=== PATIENT | female | born 1955 | race Caucasian/White ===

== ENCOUNTER 2024-03-06 09:58 | Inpatient (IN) | payer MEDICARE, OTHER ==
[~2024-03-06] VITALS: Ht 157.5 cm; Wt 66.2 kg
--- NOTE | 2024-03-06 10:17 | ED.PDOC ---
History of Present Illness HPI Comments 68-year-old female with PMHx Skin Cancer brought in by EMS presents with a chief complaint of right arm weakness x 1 week. According to EMS, patient called 911 stating that she was having a stroke. Patient was ambulatory on scene, no neurological deficits, no facial drooping, or bilateral extremity weakness. EMS reports that patient endorsed being under a lot more stress recently due to her being evicted soon from her home. 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 No other symptoms or modifying factors present at this time. 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 Family History Family History: Reviewed,noncontributory to illness Social History Smoker: Non-Smoker Alcohol: Denies ETOH Use Drugs: Denies Drug Use Lives In: Home Constitutional: denies: chills, diaphoresis, fatigue, fever, malaise, sweats, weakness, others EENTM: denies: blurred vision, double vision, ear bleeding, ear discharge, ear drainage, ear pain, ear ringing, eye pain, eye redness, hearing loss, mouth pain, mouth swelling, nasal discharge, nose bleeding, nose congestion, nose pain, photophobia, tearing, throat pain, throat swelling, voice changes, others Respiratory: denies: cough, hemoptysis, orthopnea, SOB at rest, shortness of breath, SOB with excertion, stridor, wheezing, others Cardiovascular: denies: chest pain, dizzy spells, diaphoresis, Dyspnea on exertion, edema, irregular heart beat, left arm pain, lightheadedness, palpitations, PND, syncope, others Gastrointestinal: denies: abdomen distended, abdominal pain, blood streaked bowels, constipated, diarrhea, dysphagia, difficulty swallowing, hematemesis, melena, nausea, poor appetite, poor fluid intake, rectal bleeding, rectal pain, vomiting, others Genitourinary: denies: abnormal vagina bleeding, burning, dyspareunia, dysuria, flank pain, frequency, hematuria, incontinence, pain, , vagina discharge, urgency, others Neurological: reports: right sided weakness (RIGHT ARM WEAKNESS); denies: dizziness, fainting, headache, left sided numbness, left sided weakness, numbness, paresthesia, pre-existing deficit, right sided numbness, seizure, speech problems, tingling, tremors, weakness, others Musculoskeletal: denies: back pain, gout, joint pain, joint swelling, muscle pain, muscle stiffness, neck pain, others Integumetry: denies: bruises, change in color, change in hair/nails, dryness, laceration, lesions, lumps, rash, wounds, others Allergic/Immunocompromised: denies: Difficulty Healing, Frequent Infections, Hives, Itching, others Hematologic/Lymphatic: denies: anemia, blood clots, easy bleeding, easy bruising, swollen glands, others Endocrine: denies: excessive hunger, excessive sweating, excessive thirst, excessive urination, flushing, intolerance to cold, intolerance to heat, unexplained weight gain, unexplained weight loss, others Psychiatric: denies: anxiety, bipolar disorder, depression, hopeless, panic disorder, schizophrenia, sleepless, suicidal, others All Other Systems: Reviewed and Negative Physical Exam General Appearance: Moderate Distress HEENT: Normal ENT Inspection, Pharynx Normal, TMs Normal Neck: Full Range of Motion, Non-Tender, Normal, Normal Inspection Respiratory: Chest Non-Tender, Lungs Clear, No Accessory Muscle Use, No Respiratory Distress, Normal Breath Sounds Cardiovascular: No Edema, No JVD, No Murmur, No Gallop, Normal Peripheral Pulses, Regular Rate/Rhythm Breast Exam: Deferred Gastrointestinal: No Organomegaly, Non Tender, No Pulsatile Mass, Normal Bowel Sounds, Soft Genitalia: Deferred Pelvic: Deferred Rectal: Deferred Extremities: No calf tenderness, Normal capillary refill, Normal inspection, Normal range of motion, Non-tender, No pedal edema Musculoskeletal : Apperance: Normal Neurologic: Alert, crystal gazer II-XII nml as Tested, Motor Weakness (Left-sided weakness), Normal Affect, Normal Mood, No Sensory Deficits Cerebellar Function: Normal Reflexes: Normal Skin: Dry, Normal Color, Warm Lymphatic: No Adenopathy Was a procedure done? Was a procedure done?: No Differential Dx Considerations may include: Generalized weakness, CVA, ACS, VA, electrolyte imbalance X-Ray, Labs, Meds, VS Vital Signs Date Time Temp Pulse Resp B/P (MAP) Pulse Ox O2 Delivery O2 Flow Rate FiO2 03/06/24 10:47 75 03/06/24 10:20 69 13 94 Room Air* 0 21 03/06/24 10:20 98.0 69 13 154/71 (98) 94 98.0 03/06/24 10:08 98.0 69 16 163/85 (111) 94 Lab Test 03/06/24 11:20 03/06/24 10:52 Range/Units Urine Color Colorless Yellow Urine Clarity Turbid H Clear Urine pH 6.5 5.0-9.0 Urine Specific [place] 1.004 1.001-1.035 Urine Protein Negative Negative Urine Ketones Negative Negative Urine Blood 2+ H Negative /uL Urine Nitrite 2+ H Negative Urine Bilirubin Negative Negative Urine Urobilinogen Normal Negative mg/dL Urine Leukocyte Esterase 1+ Negative /uL Urine RBC 2 0 - 4 /hpf Urine WBC 4 0 - 5 /hpf Urine Squamous Epithelial Cells Few <5 /hpf Urine Bacteria None seen None Seen /hpf Urine Glucose Normal Normal mg/dL White Blood Count 11.2 H 4.4-10.8 10^3/uL Red Blood Count 5.15 4.0-5.20 10^6/uL Hemoglobin 13.9 12.2-16.2 g/dL Hematocrit 42.2 36.0-46.0 % Mean Corpuscular Volume 82.1 80.0-100.0 fL Mean Corpuscular Hemoglobin 27.0 L 28.0-32.0 pg Mean Corpuscular Hemoglobin Concent 32.8 32.0-36.0 g/dL Red Cell Distribution Width 15.8 H 11.8-14.3 % Platelet Count 312 140-450 10^3/uL Mean Platelet Volume 8.2 6.9-10.8 fL Neutrophils (%) (Auto) 76.2 37.0-80.0 % Lymphocytes (%) (Auto) 14.8 10.0-50.0 % Monocytes (%) (Auto) 8.6 0.0-12.0 % Eosinophils (%) (Auto) 0.1 0.0-7.0 % Basophils (%) (Auto) 0.3 0.0-2.0 % Neutrophils # (Auto) 8.5 1.6-8.6 10 ^3/uL Lymphocytes # (Auto) 1.7 0.4-5.4 10 ^3/uL Monocytes # (Auto) 1.0 0-1.3 10 ^3/uL Eosinophils # (Auto) 0 0-0.8 10 ^3/uL Basophils # (Auto) 0 0-0.2 10 ^3/uL Nucleated Red Blood Cells 0.1 % Sodium Level 142 136-145 mmol/L Potassium Level 3.4 L 3.5-5.1 mmol/L Chloride Level 115 H 98-107 mmol/L Carbon Dioxide Level 22 20-31 mmol/L Anion Gap 5 5-15 Blood Urea Nitrogen 16 9-23 mg/dL Creatinine 0.88 0.550-1.02 mg/dL Glomerular Filtration Rate Calc 72 >90 mL/min BUN/Creatinine Ratio 18.2 10.0-20.0 Serum Glucose 101 74-106 mg/dL Calcium Level 10.0 8.7-10.4 mg/dL Troponin I High Sensitivity 9 </=34 ng/L Current Medications Medications (Trade) Dose Ordered Sig/Dustin Route Start Time Stop Time Status Last Admin Sodium Chloride 500 ml @ 500 mls/hr Q1H ONCE IV 03/06/24 10:30 03/06/24 11:29 DC 03/06/24 11:[address] SCAN IMPRESSION: 1. Small nonspecific hypodense focus in the left caudate head may represent an age-indeterminate infarct. Clinical correlation and further evaluation with MRI brain with diffusion-weighted imaging is recommended. 2. Chronic cortical infarct in the superior left frontal lobe. The CBC shows an elevated white blood cell count of 11.2 The chemistry panel shows hypokalemia at 3.4 The rest of the chemistry panel is within normal limits The urine test seems like there is a UTI The patient has an IV Hep-Lock established and was given 500 cc bolus. The patient was being admitted at this time. A carotid Doppler done bilaterally and the left carotid artery shows: IMPRESSION: 1. 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 2. No hemodynamically significant stenosis noted in the right carotid system. At this time the hospitalist has assumed care of the patient. The patient will be admitted A neurology consult will be obtained Images Reviewed?: Images reviewed and evaluated by me Time of 1ST Reevaluation: 10:41 Reevaluation 1ST: Unchanged Patient Education/Counseling: Diagnosis, Treatment, Prognosis Family Education/Counseling: No Family Present Departure 1 Departure Time of Disposition: 14:21 Impression: Primary Impression: CVA (cerebral vascular accident) Qualified Codes: I63.232 - Cerebral infarction due to unspecified occlusion or stenosis of left carotid arteries Disposition: 09 ADMITTED INPATIENT Admit to: [facility] Condition: Fair Critical Care Note Critical Care Time?: Yes (35 min-critical care time only) Stability Stability form required: Yes Unstable for transfer: Telemetry monitoring (Telemetry monitoring required), ED Physician Assesment (Clinical assesment) Heart Score Heart Score: Heart Score Response (Comments) Value History N/A 0 EKG N/A 0 Age N/A 0 Risk Factors N/A 0 Troponin N/A 0 Total 0 I personally scribed for CHRISSY WINKLER MD ([email or web address]) on 03/06/24 at 10:17. Electronically submitted by Abdulkadir Wu ([email or web address]). I personally scribed for CHRISSY WINKLER MD ([email or web address]) on 03/06/24 at 11:07. Electronically submitted by Abdulkadir Wu ([email or web address]). CHRISSY WINKLER MD Mar 06, 2024 10:17
[2024-03-06 10:20] VITALS: PULSE 69; RESP 13; O2SAT 94
--- NOTE | 2024-03-06 10:58 | DVH ---
EXAM: CT HEAD WITHOUT CONTRAST HISTORY: weakness COMPARISON: None TECHNIQUE: Axial images of the head were obtained and reformatted in coronal and sagittal planes. All CT scans at this medical facility are performed using dose modulation techniques as appropriate t o a performed exam including the following: Automated exposure control was utilized; adjustment of th e MA and/or KV according to patient size; and use of iterative reconstruction technique. CT Dose: CTDI volume is 56.26 mGy. Dose-length product is 996.21 mGy*cm FINDINGS: There is a small hypodense focus in the left caudate head region ( axial image 31 ) which may represe nt an age indeterminate infarct. There is a chronic cortical infarct in the superior left frontal lo be. There is no evidence of acute intracranial hemorrhage, mass, mass effect midline shift. There is no h ydrocephalus or extra-axial fluid collection. The visualized paranasal sinuses and mastoid air cells are clear. The calvarium is intact. IMPRESSION: 1. Small nonspecific hypodense focus in the left caudate head may represent an age-indeterminate infa rct. Clinical correlation and further evaluation with MRI brain with diffusion-weighted imaging is re commended. 2. Chronic cortical infarct in the superior left frontal lobe. HS:Y
[2024-03-06 11:09] LABS: Basophils # (auto) 0 10 ^3/uL (0-0.2); Basophils % (auto) 0.3 % (0.0-2.0); Eosinophils # (auto) 0 10 ^3/uL (0-0.8); Eosinophils % (auto) 0.1 % (0.0-7.0); Hematocrit 42.2 % (36.0-46.0); Hemoglobin 13.9 g/dL (12.2-16.2); Lymphocytes # (auto) 1.7 10 ^3/uL (0.4-5.4); Lymphocytes % (auto) 14.8 % (10.0-50.0); Mean Corpuscular Hgb Conc. 32.8 g/dL (32.0-36.0); Mean Corpuscular Volume 82.1 fL (80.0-100.0); Monocytes % (auto) 8.6 % (0.0-12.0); Neutrophils # (auto) 8.5 10 ^3/uL (1.6-8.6); Neutrophils % (auto) 76.2 % (37.0-80.0); Nucleated Red Blood Cells % 0.1 %; Platelet Count (auto) 312 10^3/uL (140-450); Red Blood Cells 5.15 10^6/uL (4.0-5.20); Red Cell Distribution Width 15.8 % (11.8-14.3); White Blood Cell 11.2 10^3/uL (4.4-10.8)
[2024-03-06 11:14] LABS: Sodium 142 mmol/L (136-145)
[2024-03-06 11:15] LABS: Anion Gap 5 (5-15); Carbon Dioxide 22 mmol/L (20-31)
[2024-03-06 11:20] LABS: BUN/Creatinine Ratio 18.2 (10.0-20.0); Blood Urea Nitrogen 16 mg/dL (9-23); Glucose 101 mg/dL (74-106)
[2024-03-06 11:21] LABS: Chloride 115 mmol/L (98-107); Potassium 3.4 mmol/L (3.5-5.1)
[2024-03-06] MEDS: SODIUM CHLORIDE 0.9% 500 ML IV ONE (11:27)
[2024-03-06 11:28] LABS: Urine Bacteria None Seen /hpf (None Seen)
[2024-03-06] MEDS: SODIUM CHLORIDE 0.9% 1,000 ML IV SCH (11:30)
[2024-03-06] MEDS ORDERED: ZOLPIDEM TARTRATE 5 MG TAB PO PRN (11:30)
[2024-03-06] MEDS ORDERED: ONDANSETRON HCL 4 MG/2 ML VIAL IV PRN (11:30)
--- NOTE | 2024-03-06 11:46 | DVHHP2 ---
History of Present Illness Reason for Visit: weakness History of Present Illness 68-year-old patient with a past medical history of cancer of the skin comes in with complaints of weakness x1 week especially in the right arm stating that the patient has no ability to properly ambulate patient does have chronic history of multiple strokes in the past CT scan was done in the ED showing that the patient does have multiple chronic episode of strokes in the past as possible at this might be a new episode as of now patient is not a candidate for acute thrombectomy or out of place given the age the complaint patient was suggested for acute admission and evaluation and monitoring recurrent symptoms CONTROLS ENGINEER: TIA Review of Systems Constitutional: Yes: Weakness; No: Fever, Chills, Sweats, Malaise, Other Eyes: No: Pain, Vision change, Conjunctivae inflammation, Eyelid inflammation, Other, Redness ENT: No: Ear pain, Ear discharge, Nose pain, Nose discharge, Nose congestion, Mouth pain, Mouth swelling, Throat pain, Throat swelling, Other Respiratory: No: Cough, Dry, Shortness of breath, SOB with excertion, Wheezing, Hemoptysis, Pleuritic Pain, Sputum, Wheezing, Other Cardiovascular: No: Chest Pain, Palpitations, Orthopnea, Paroxysmal Noc. Dyspnea, Edema, Lt Headedness, Other Gastrointestinal: No: Nausea, Vomiting, Abdominal Pain, Diarrhea, Constipation, Melena, Hematochezia, Other Genitourinary: No Dysuria, No Frequency, No Incontinence, No Hematuria, No Retention, No Other Musculoskeletal: No: other, neck pain, shoulder pain, arm pain, back pain, hand pain, leg pain, foot pain Skin: No: Rash, Lesions, Jaundice, Bruising, Other Neurological: No: Weakness, Numbness, Incoordination, Change in speech, Confusion, Seizures, Other Allergies: Coded Allergies: NO KNOWN ALLERGIES (Unverified , 03/06/24) Medications Current Medications Medications Dose Ordered Sig/Dustin Route Start Time Stop Time Status Last Admin Dose Admin Sodium Chloride 1,000 ml @ 75 mls/hr [id number] IV 03/06/24 11:30 UNV Aspirin 81 mg DAILY PO 03/07/24 10:00 UNV Aspirin 325 mg ONCE PO 03/06/24 11:30 UNV Clopidogrel Bisulfate 75 mg DAILY PO 03/07/24 10:00 UNV Atorvastatin Calcium 80 mg HS PO 03/06/24 22:00 UNV Carvedilol 6.25 mg Q12HR PO 03/06/24 22:00 UNV Acetaminophen 650 mg Q6HP PRN PO 03/06/24 11:30 UNV Zolpidem Tartrate 5 mg QHSP PRN PO 03/06/24 11:30 UNV Lorazepam 0.5 mg Q6HP PRN PO 03/06/24 11:30 UNV Docusate Sodium 100 mg DAILY PO 03/07/24 10:00 UNV Ondansetron HCl 4 mg Q4HP PRN IV 03/06/24 11:30 UNV Lisinopril 10 mg DAILY PO 03/07/24 10:00 UNV Exam Vital Signs Vital Signs Date Time Temp Pulse Resp B/P (MAP) Pulse Ox O2 Delivery O2 Flow Rate FiO2 03/06/24 10:47 75 03/06/24 10:20 13 94 Room Air* 0 21 03/06/24 10:20 98.0 154/71 (98) 98.0 General Appearance: Alert, Oriented X3, Cooperative, mild distress HEENT: PERRLA Cardiovascular: Regular rate, Normal S1, Normal S2 Abdominal: Normal bowel sounds, No tenderness Extremities: No clubbing, No cyanosis Skin: No breakdown Neuro: Normal gait, Normal speech, Strength at 5/5 X4 ext (Right-sided weakness) Psych/Mental Status: Mood NL Labs/Xrays Labs Test 03/06/24 11:20 03/06/24 10:52 Range/Units White Blood Count 11.2 H 4.4-10.8 10^3/uL Red Blood Count 5.15 4.0-5.20 10^6/uL Hemoglobin 13.9 12.2-16.2 g/dL Hematocrit 42.2 36.0-46.0 % Mean Corpuscular Volume 82.1 80.0-100.0 fL Mean Corpuscular Hemoglobin 27.0 L 28.0-32.0 pg Mean Corpuscular Hemoglobin Concent 32.8 32.0-36.0 g/dL Red Cell Distribution Width 15.8 H 11.8-14.3 % Platelet Count 312 140-450 10^3/uL Mean Platelet Volume 8.2 6.9-10.8 fL Neutrophils (%) (Auto) 76.2 37.0-80.0 % Lymphocytes (%) (Auto) 14.8 10.0-50.0 % Monocytes (%) (Auto) 8.6 0.0-12.0 % Eosinophils (%) (Auto) 0.1 0.0-7.0 % Basophils (%) (Auto) 0.3 0.0-2.0 % Neutrophils # (Auto) 8.5 1.6-8.6 10 ^3/uL Lymphocytes # (Auto) 1.7 0.4-5.4 10 ^3/uL Monocytes # (Auto) 1.0 0-1.3 10 ^3/uL Eosinophils # (Auto) 0 0-0.8 10 ^3/uL Basophils # (Auto) 0 0-0.2 10 ^3/uL Nucleated Red Blood Cells 0.1 % Sodium Level 142 136-145 mmol/L Potassium Level 3.4 L 3.5-5.1 mmol/L Chloride Level 115 H 98-107 mmol/L Carbon Dioxide Level 22 20-31 mmol/L Anion Gap 5 5-15 Blood Urea Nitrogen 16 9-23 mg/dL Creatinine 0.88 0.550-1.02 mg/dL Glomerular Filtration Rate Calc 72 >90 mL/min BUN/Creatinine Ratio 18.2 10.0-20.0 Serum Glucose 101 74-106 mg/dL Calcium Level 10.0 8.7-10.4 mg/dL Assessment/Plan Assessment/Plan Admit to [facility] Suspected CVA Patient is past window for acute evaluation CT scan shows chronic cortical infarcts Superior left frontal lobe History of small hypodensity which is age indeterminate possibly a new onset stroke ASA Plavix Beta Blockers pressure monitoring Carotid doppler evaluation MRI can be done in patient if deemed necessary Plan discussed with: Patient My Orders Orders - ERIC WAGGONER MD Procedure Category Date Status Time Admit ADMIT 03/06/24 Transmitted 11:25 Code Status CODE 03/06/24 Transmitted 11:25 Cardiac DIET 03/06/24 Transmitted Diet-2gna,Lofat,Lochol Lunch Sodium Chloride 0.9% PHA 03/06/24 Logged 11:30 Aspirin Tablet PHA 03/07/24 Logged 10:00 Aspirin Tablet PHA 03/06/24 Logged 11:30 Clopidogrel Bisulfate PHA 03/07/24 Logged (Plavix) 10:00 Atorvastatin (Lipitor) PHA 03/06/24 Logged 22:00 Carvedilol Tablet PHA 03/06/24 Logged (Coreg Tablet) 22:00 Acetaminophen Tablet PHA 03/06/24 Logged (Tylenol Tablet) 11:30 Zolpidem Tartrate PHA 03/06/24 Logged (Ambien) 11:30 Lorazepam Tablet PHA 03/06/24 Logged (Ativan Tablet) 11:30 Docusate Sodium PHA 03/07/24 Logged Capsule (Colace 10:00 Complete Blood Count LAB 03/07/24 Verified 04:00 Basic Metabolic Panel LAB 03/07/24 Verified 04:00 Urine Microscopic LAB 03/06/24 In Process 11:25 Ondansetron Hcl PHA 03/06/24 Logged (Zofran) 11:30 Electrocardigram EKG 03/06/24 Logged 11:25 Troponin-I Hs LAB 03/06/24 In Process 11:25 Lisinopril Tablet PHA 03/07/24 Logged (Zestril Tablet) 10:00 Cardiac DIMAS 03/06/24 In Process Rehabilitation - Outpa Notify Md Of Changes DIMAS 03/06/24 In Process From Base 11:25 Oxygen By Nasal RT 03/06/24 Transmitted Cannula 11:25 Carotid Duplx W Color US 03/06/24 Logged DOP 11:25 Problem List: (1) TIA (transient ischemic attack) (2) CVA (cerebral vascular accident) (3) General weakness Date of Service: Mar 06, 2024 Billing Provider: ERIC WAGGONER MD Common Visit Codes: 47221-[id number] INP/OBS CARE (HIGH) ERIC WAGGONER MD Mar 06, 2024 11:46
[2024-03-06 11:52] LABS: Urine Blood 2+ /uL (Negative); Urine Clarity Turbid (Clear); Urine Color Colorless (Yellow); Urine Protein, UAD Negative (Negative); Urine Specific Gravity 1.004 (1.001-1.035); Urine Urobilinogen Normal (Negative); Urine WBC 4 /hpf (0 - 5); Urine pH 6.5 (5.0-9.0)
[2024-03-06] MEDS: ASPirin 325 MG TAB PO ONE (12:12)
--- NOTE | 2024-03-06 13:00 | DVH ---
Carotid Duplex Date: 03/06/2024 12:09 PM Clinical History: cva stenosis suspected Comparison: None Technique: Duplex Doppler evaluation of the extracranial carotid and vertebral arteries including color Doppler and spectral/pulsed waveform analysis was performed. Findings: RIGHT SIDE: Mixed atherosclerotic plaque of the right carotid bulb and proximal right ICA causing less than 50% s tenosis by grayscale measurement. The peak systolic velocities are 71 cm/s in the distal CCA and 115 cm/s in the proximal ICA.The ICA/C CA ratio is less than 2. The external carotid artery is patent with peak systolic velocity of 106 cm/s proximally. There is appropriate antegrade flow in the right vertebral artery. LEFT SIDE: The peak systolic velocities are 62 cm/s in the distal CCA. Large mixed atherosclerotic plaque causin g complete occlusion at the proximal left ICA. No ICA to CCA ratio, as ICA velocity is 0. The external carotid artery is patent with peak systolic velocity of 143 cm/s proximally. There is appropriate antegrade flow in the left vertebral artery. IMPRESSION: 1. Complete occlusion at the level of of the left proximal ICA, and extending throughout the visualiz ed distal segment. 2. No hemodynamically significant stenosis noted in the right carotid system. 3. Reference: Radiology 2003; [id number] Critical Result: Occluded left ICA Findings discussed with ordering provider, Dr. Kim , at 03/06/2024 12:57 PM, and acknowledged rece ipt and understanding of the findings. HS:Y
--- NOTE | 2024-03-06 15:43 | DVH ---
INDICATION: CVA EVALUATION COMPARISON: None TECHNIQUE: CTA head with intravenous contrast. CTA neck with intravenous contrast. 3D image postpr ocessing was performed on a dedicated workstation and images were used for interpretation and reporti ng. Radiation Dose Information: CT Dose: CTDI volume is 22.55 mGy. Dose-length product is 736.89 mGy*cm CONTRAST: Type of contrast: Omni 350 Contrast injected: 100 ml FINDINGS: CTA head: There is normal enhancement of the visualized distal right internal carotid, anterior and middle cere bral arteries. Left petrous and cavernous carotid arteries are occluded. Left supraclinoid internal carotid artery is patent. Left A1 segment is atretic. Left middle cerebral artery is patent. There i s a normal anterior communicating artery complex. The vertebral, basilar, cerebellar and posterior cerebral arteries are within normal limits. The early parenchymal enhancement is grossly unremarkab le. The visualized intracranial venous structures are grossly unremarkable. CTA neck: Limited by motion at the level of the carotid bifurcation. The visualized thoracic aortic arch and proximal great vessels are unremarkable. 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 Left common and external caroti d arteries appear patent. There appears to be a [id number] stenosis of the proximal right internal carotid artery. Right common and external carotid arteries appear patent. The cervical segments of the right and left vertebral arteries are within normal limits. The limited visualized lung apices are clear. Left thyroid cyst or nodule. Degenerative changes in the cervical spine. IMPRESSION: 1. Limited by motion at the level of the carotid bifurcation. 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 Likely [id number] stenosis of the proximal right internal carotid artery . Consider repeat examination. Alternatively carotid doppler or MRA of the neck be performed for fur ther evaluation. 2. Occluded left petrous and cavernous carotid artery with reconstitution at the level of the left holloway praclinoid internal carotid artery. Otherwise intracranial arteries are patent. All CT scans at this medical facility are performed using dose modulation techniques as appropriate t o a performed exam including the following: Automated exposure control was utilized; adjustment of th e MA and/or KV according to patient size; and use of iterative reconstruction technique. HS:Y
[2024-03-06] MEDS: cefTRIAXone 1GM/50ML D5W 50 ML IV SCH (17:30)
[2024-03-06] MEDS: IOHEXOL 350 MG/ML 100ML IJ ONE (19:30)
[2024-03-06 20:00] VITALS: PULSE 72; RESP 14; O2SAT 95
[2024-03-07] VITALS (10 sets, daily range): BP systolic 121–166; BP diastolic 63–81; PULSE 56–76; RESP 13–20; TEMP 97.6–98.5; O2SAT 95–100
[2024-03-07] MEDS: CARVEDILOL 3.125 MG TAB PO SCH (00:10)
[2024-03-07] MEDS: ATORVASTATIN 20 MG TAB PO SCH (00:10)
[2024-03-07] MEDS: hydrALAZINE HCL 20 MG/ML VL IV ONE (02:16)
[2024-03-07 06:09] LABS: Basophils # (auto) 0.1 10 ^3/uL (0-0.2); Basophils % (auto) 0.6 % (0.0-2.0); Eosinophils # (auto) 0.1 10 ^3/uL (0-0.8); Eosinophils % (auto) 0.9 % (0.0-7.0); Hematocrit 38.6 % (36.0-46.0); Hemoglobin 12.9 g/dL (12.2-16.2); Lymphocytes # (auto) 2.1 10 ^3/uL (0.4-5.4); Lymphocytes % (auto) 23.2 % (10.0-50.0); Mean Corpuscular Hemoglobin 27.3 pg (28.0-32.0); Mean Corpuscular Hgb Conc. 33.4 g/dL (32.0-36.0); Mean Corpuscular Volume 81.7 fL (80.0-100.0); Monocytes # (auto) 0.9 10 ^3/uL (0-1.3); Monocytes % (auto) 9.6 % (0.0-12.0); Neutrophils # (auto) 5.9 10 ^3/uL (1.6-8.6); Neutrophils % (auto) 65.7 % (37.0-80.0); Platelet Count (auto) 291 10^3/uL (140-450); Red Blood Cells 4.73 10^6/uL (4.0-5.20); Red Cell Distribution Width 15.8 % (11.8-14.3)
[2024-03-07 06:21] LABS: Anion Gap 9 (5-15); Potassium 3.7 mmol/L (3.5-5.1); Sodium 144 mmol/L (136-145)
[2024-03-07 06:23] LABS: Calcium 9.8 mg/dL (8.7-10.4)
[2024-03-07 06:28] LABS: BUN/Creatinine Ratio 18.1 (10.0-20.0); Blood Urea Nitrogen 13 mg/dL (9-23); Glucose 91 mg/dL (74-106)
[2024-03-07 06:30] LABS: Carbon Dioxide 17 mmol/L (20-31); Chloride 118 mmol/L (98-107)
[2024-03-07] MEDS: DOCUSATE SOD 100 MG CAP PO SCH (09:51)
[2024-03-07] MEDS: ASPirin 81 mg TAB PO SCH (09:52)
[2024-03-07] MEDS: CLOPIDOGREL BISULFATE 75 MG TAB PO SCH (09:53)
[2024-03-07 09:54] LABS: Triglycerides 112 mg/dL (< 150)
[2024-03-07 09:55] LABS: LDL Cholesterol 79 mg/dL (< 100)
[2024-03-07 09:56] LABS: Cholesterol 153 mg/dL (< 200); HDL Cholesterol 48 mg/dL (40-59)
[2024-03-07] MEDS ORDERED: LISINOPRIL 5 MG TAB PO SCH (10:00)
--- NOTE | 2024-03-07 18:13 | DVHPNRES ---
Progress Note Date Seen: Mar 07, 2024 Resident Creating Document: TIGRE RAMOS RESIDENT Has the PT tested + for MRSA If YES, has PT been informed?: No Medical Necessity Reason Pt with a Central, PICC or Fol: No Medical Necessity Reason Necrotic open skin cancer forehead, right jaw Subjective Review of Systems This is a 68-year-old patient with a past medical history of skin cancer, multiple strokes comes to the ED with right sided weakness that has been intermittent for several months. But in the past 2 days, right sided weak became prominent to the point that she can't grab a pen to write. Thus, prompting her to come to the ED. She denies loss of smell, visual changes, changes in speech, confusion, seizures. Initial blood works showed wbc: 11.2, UA positive for mild UTI. CT head revealed Small nonspecific hypodense focus in the left caudate head may represent an age-indeterminate infarct. Clinical correlation and further evaluation with MRI brain with diffusion-weighted imaging is recommended. Chronic cortical infarct in the superior left frontal lobe. Carotid doppler showed Complete occlusion at the level of of the left proximal ICA, and extending throughout the visualized distal segment and no hemodynamically significant stenosis noted in the right carotid system. And CT head 1. Limited by motion at the level of the carotid bifurcation. 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 Likely [id number]-[id number] stenosis of the proximal right internal carotid artery. Consider repeat examination. Alternatively carotid doppler or MRA of the neck be performed for further evaluation. Occluded left petrous and cavernous carotid artery with reconstitution at the level of the left supraclinoid internal carotid artery. Otherwise intracranial arteries are patent. Past medical history: Multiple CVA with right sided weakness, Skin cancers Past surgical history: left ear surgery Family history: Non contributory Social history: Smoked 2 packs of cigarret since age 15, 106 pack years Constitutional: Yes: right Weakness; No: Fever, Chills, Sweats, Malaise, Other Eyes: No: Pain, Vision change, Conjunctivae inflammation, Eyelid inflammation, Other, Redness ENT: [place] of hearing. Nose congestion, Mouth pain, Mouth swelling, Throat pain, Throat swelling, Other Respiratory: Cough, mild SOB with excertion; Denies Wheezing, Hemoptysis, Pleuritic Pain, Sputum, Wheezing, Other Cardiovascular: No: Chest Pain, Palpitations, Orthopnea, Paroxysmal Noc. Dyspnea, Edema, Lt Headedness, Other Gastrointestinal: No: Nausea, Vomiting, Abdominal Pain, Diarrhea, Constipation, Melena, Hematochezia, Other Genitourinary: No Dysuria, No Frequency, No Incontinence, No Hematuria, No Retention, No Other Musculoskeletal: right sided weakness Skin: open wound on the forehead, fungating tumor on the chin Neurological: Weakness, Numbness, Incoordination, Objective vital signs Vital Sign Date Time Temp Pulse Resp B/P (MAP) Pulse Ox O2 Delivery O2 Flow Rate FiO2 03/07/24 17:15 97.6 68 20 141/70 (93) 97 97.6 03/07/24 08:00 Room Air* 0 21 Total Intake and Output 03/06/24 03/06/24 03/07/24 15:00 23:00 07:00 Intake Total 500 ml 50 ml 0 ml Balance 500 ml 50 ml 0 ml medications Current Medications Medications Dose Ordered Sig/Dustin Route Start Time Stop Time Status Last Admin Dose Admin Aspirin 81 mg DAILY PO 03/07/24 10:00 03/07/24 09:52 81 MG Clopidogrel Bisulfate 75 mg DAILY PO 03/07/24 10:00 03/07/24 09:53 75 MG Atorvastatin Calcium 80 mg HS PO 03/06/24 22:00 03/07/24 00:10 80 MG Carvedilol 6.25 mg Q12HR PO 03/06/24 22:00 03/07/24 10:49 6.25 MG Acetaminophen 650 mg Q6HP PRN PO 03/06/24 11:30 Zolpidem Tartrate 5 mg QHSP PRN PO 03/06/24 11:30 Lorazepam 0.5 mg Q6HP PRN PO 03/06/24 11:30 Docusate Sodium 100 mg DAILY PO 03/07/24 10:00 03/07/24 09:51 100 MG Ondansetron HCl 4 mg Q4HP PRN IV 03/06/24 11:30 Ceftriaxone Sodium 50 ml @ 100 mls/hr DAILY@09 IV 03/06/24 17:30 03/07/24 09:53 100 MLS/HR Examination General examination---> Open wound kind of smell, bloody smell;Alert, Oriented X3, Cooperative, mild distress HEENT: PEERLA, no acute nasal discharge Chest: S1-S2 audible, rate and rhythm regular, no murmur Lung: CTAB, no wheeze or rhonchi Abdomen: Nondistend, BS+, nontenderness, no organomegaly Musculoskeletal: no acute joint swelling or tenderness Lower extremity: Upper extremity power Motor 3-4/5, Lower extremity: 5/5 Neurological: cranial nerves intact, no acute dysarthria or dysphagia Psychiatry-- Normal mood and affect Skin- open wound lesion on her fore head between her eyes, lesion on the chin laboratory and microbiology Laboratory Tests 03/07/24 05:44 Test 03/07/24 05:44 Range/Units Serum Glucose 91 74-106 mg/dL Labs and/or images reviewed: Labs reviewed by me, Image(s) reviewed by me Problem List/Assessment/Plan Problem List/Assessment/Plan Right sided weakness -->Significant arterial occlusions on imaging studies --> possible TIA Ulcerated skin Cancer --> Oncology consult vs palliative care --> Wound care consult UTI --> Wb : 11.2-->9.0 --> Ceftriaxone Hypertension --> Carvediol --> Hydralazine 10mg SBP > 160 hypokalemia--> Improved K: 3.4--> 3.7 [place] of hearing Patient would benefit from palliative care Goals of care discussed for 20 minutes; code status: Full Case and plan discussed with Dr. Driscoll Plan discussed with: Patient, Other (Nurse) My Orders My Orders Orders - TIGRE RAMOS RESIDENT Procedure Category Date Status Time Brain Head Wo Contrast MRI 03/07/24 Logged 09:02 Addendum Addendum Addendum I was physically present for the [place] portions of the service provided to patient by THE RESIDENT. I have reviewed the documentation, discussed the case with resident and agree with the resident's documentation except as noted. Also the patient's clinical case was discussed with the patient's nurse. This medical document was created using an electronic medical record system with computerized dictation system. Although this document has been carefully reviewed, there might still be some phonetic and typographical errors. These areas are purely typographical due to imperfections of the software programs, and do not reflect any compromise in the patient's medical care. Late signature. Date of Service: Mar 07, 2024 Billing Provider: CONI DRISCOLL MD Common Visit Codes: [id number] INP/OBS CARE(HIGH) Secondary Visit Codes: [id number] CARE PLAN 30 MINUTES (20 minutes) TIGRE RAMOS Mar 07, 2024 18:13 CONI DRISCOLL MD Mar 09, 2024 05:20
[2024-03-08] VITALS (7 sets, daily range): BP systolic 121–173; BP diastolic 61–87; PULSE 51–64; RESP 13–19; TEMP 97.7–98.8; O2SAT 97–99
[2024-03-08] MEDS: ACETAMINOPHEN 325 MG TAB PO PRN (00:29)
[2024-03-08] MEDS: LISINOPRIL 5 MG TAB PO SCH (10:49)
[2024-03-08] MEDS: hydrALAZINE HCL 20 MG/ML VL IV PRN (13:38)
[2024-03-08 16:28] LABS: Potassium 3.6 mmol/L (3.5-5.1); Sodium 143 mmol/L (136-145)
[2024-03-08 16:29] LABS: Anion Gap 9 (5-15); Carbon Dioxide 21 mmol/L (20-31); Chloride 113 mmol/L (98-107)
[2024-03-08 16:34] LABS: BUN/Creatinine Ratio 21.1 (10.0-20.0); Blood Urea Nitrogen 19 mg/dL (9-23)
[2024-03-08 16:40] LABS: Glucose 108 mg/dL (74-106)
[2024-03-08] MEDS: NIFEdipine ER 30 MG TAB PO ONE (17:30)
--- NOTE | 2024-03-08 19:41 | DVHPNRES ---
Progress Note Date Seen: Mar 08, 2024 Resident Creating Document: TIGRE RAMOS RESIDENT Medical Necessity Reason Pt with a Central, PICC or Fol: No Subjective Review of Systems Ms Sanz, is a 68-year-old patient with a past medical history of skin cancer, multiple strokes came into the ED on with the complaint of right sided weakness that initially intermittent but became progressive and constant for 2 days prior to presentation to the ED. Patient is currently being managed for the weakness with physical therapy and the UTI with antibiotics. With regard to the open wounds on her face, wound care has been consulted for assess and management. This morning, during my interaction with the patient, she had no new complaints. She slept well and had a good breakfast. I discussed with the patient what her plan is regarding the ulcerated skin cancer. She has no plan. She has no PCP and oncologist. But she would like to see an oncologist. Will see the patient at the discharge clinic. Advised patient to look for a PCP and get a referral to see an oncologist. Also, patient is not sure if she would have home to return to upon discharge. I offered to call a family member regarding discharge disposition, but patient refused. I briefly mention palliative care, but she is not sure. I have placed a consult to social media marketing specialist to assistance with discharge disposition. Constitutional: Yes: right Weakness; No: Fever, Chills, Sweats, Malaise, Other Eyes: No: Pain, Vision change, Conjunctivae inflammation, Eyelid inflammation, Other, Redness ENT: [place] of hearing. Nose congestion, Mouth pain, Mouth swelling, Throat pain, Throat swelling, Other Respiratory: Cough, mild SOB with exertion; Denies Wheezing, Hemoptysis, Pleuritic Pain, Sputum, Wheezing, Other Cardiovascular: No: Chest Pain, Palpitations, Orthopnea, Paroxysmal Noc. Dyspnea, Edema, Lt Headedness, Other Gastrointestinal: No: Nausea, Vomiting, Abdominal Pain, Diarrhea, Constipation, Melena, Hematochezia, Other Genitourinary: No Dysuria, No Frequency, No Incontinence, No Hematuria, No Retention, No Other Musculoskeletal: right sided weakness Skin: open wound on the forehead, fungating tumor on the chin Neurological: Weakness, Numbness, Incoordination, Objective vital signs Vital Sign Date Time Temp Pulse Resp B/P (MAP) Pulse Ox O2 Delivery O2 Flow Rate FiO2 03/08/24 17:30 129/64 03/08/24 17:00 97.7 64 18 97 97.7 03/08/24 08:00 Room Air* 0 21 Total Intake and Output 03/07/24 03/07/24 03/08/24 15:00 23:00 07:00 Intake Total 650 ml 100 ml Balance 650 ml 100 ml medications Current Medications Medications Dose Ordered Sig/Dustin Route Start Time Stop Time Status Last Admin Dose Admin Aspirin 81 mg DAILY PO 03/07/24 10:00 03/08/24 10:47 81 MG Clopidogrel Bisulfate 75 mg DAILY PO 03/07/24 10:00 03/08/24 10:46 75 MG Atorvastatin Calcium 80 mg HS PO 03/06/24 22:00 03/07/24 22:33 80 MG Carvedilol 6.25 mg Q12HR PO 03/06/24 22:00 03/08/24 10:00 6.25 MG Acetaminophen 650 mg Q6HP PRN PO 03/06/24 11:30 03/08/24 17:29 650 MG Zolpidem Tartrate 5 mg QHSP PRN PO 03/06/24 11:30 Lorazepam 0.5 mg Q6HP PRN PO 03/06/24 11:30 Docusate Sodium 100 mg DAILY PO 03/07/24 10:00 03/08/24 10:47 100 MG Ondansetron HCl 4 mg Q4HP PRN IV 03/06/24 11:30 Ceftriaxone Sodium 50 ml @ 100 mls/hr DAILY@09 IV 03/06/24 17:30 03/08/24 10:49 100 MLS/HR Lisinopril 10 mg DAILY PO 03/08/24 10:00 03/08/24 10:49 10 MG Hydralazine HCl 10 mg Q6HP PRN IV 03/08/24 11:15 03/08/24 13:38 10 MG Nifedipine 30 mg DAILY PO 03/09/24 10:00 Examination General examination---> Alert, Oriented X3, Cooperative, mild distress, Ulcerated skin caner on her face HEENT: PEERLA, no acute nasal discharge Chest: S1-S2 audible, rate and rhythm regular, no murmur Lung: CTAB, no wheeze or rhonchi Abdomen: Nondistend, BS+, nontenderness, no organomegaly Musculoskeletal: no acute joint swelling or tenderness Lower extremity: Upper extremity weakness: power Motor 3-4/5, Lower extremity: 5/5 Neurological: cranial nerves intact, no acute dysarthria or dysphagia Psychiatry-- Normal mood and affect Skin- open wound lesion on her forehead between her eyes, necrotic lesion on the right chin laboratory and microbiology Laboratory Tests 03/08/24 16:10 03/07/24 05:44 Test 03/08/24 16:10 Range/Units Serum Glucose 108 H 74-106 mg/dL Labs and/or images reviewed: Labs reviewed by me, Image(s) reviewed by me Problem List/Assessment/Plan Problem List/Assessment/Plan Right sided weakness -->CT: Complete occlusion at the level of of the left proximal ICA, and extending throughout the visualized distal segment --> CT Head/Neck: 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 Likely [id number] stenosis of the proximal right internal carotid artery. Consider repeat examination. Alternatively carotid doppler or MRA of the neck be performed for further evaluation. -->CT head: 1. Small nonspecific hypodense focus in the left caudate head may represent an age-indeterminate infarct. Clinical correlation and further evaluation with MRI brain with diffusion-weighted imaging is recommended. 2. Chronic cortical infarct in the superior left frontal lobe. --> possible TIA --> Physical therapy evaluation consult: pending Ulcerated skin Cancer --> Oncology consult vs palliative care --> Wound care consult --> Would need an oncologist/ Intake Assessor evaluation UTI --> WBC: 11.2-->9.0 --> Ceftriaxone --> looking better, vitals improve. Hypertension --> Carvediol --> Hydralazine 10mg SBP > 160 hypokalemia--> Improved K: 3.4--> 3.7 [place] of hearing ---> Communicate with patient by writing each question caregiver services home consult for discharge disposition Patient would benefit from palliative care Case and plan discussed with Dr. Driscoll Addendum: At 8:30 pm, I went to check on the patient before heading home. Her sister, Cira, was present. She wanted to know exactly what the patient has and the management plan. With the patient's permission, I explained to Cira that acutely, we are managing the patient for acute UTI and right hemiparesis and for that, she is good for discharge tomorrow and follow up with us at the discharge clinic. Patient would need to been seen by a education department chair for the skin cancer or an oncologist for further management. Or there is also the option for palliative care. Plan discussed with: Patient, Other (SISTERCira//nurse) My Orders My Orders Orders - TIGRE RAMOS RESIDENT Procedure Category Date Status Time * Industrial Technology Education Teacher CONS 03/08/24 Transmitted Consult Hydralazine Injection PHA 03/08/24 In Process (Apresoline Inject 11:15 Pt Request For Service PT 03/08/24 Logged 11:08 * Industrial Technology Education Teacher CONS 03/08/24 Transmitted Consult Addendum Addendum Addendum I was physically present for the [place] portions of the service provided to patient by THE RESIDENT. I have reviewed the documentation, discussed the case with resident and agree with the resident's documentation except as noted. Also the patient's clinical case was discussed with the patient's nurse. This medical document was created using an electronic medical record system with computerized dictation system. Although this document has been carefully reviewed, there might still be some phonetic and typographical errors. These areas are purely typographical due to imperfections of the software programs, and do not reflect any compromise in the patient's medical care. Late signature. Date of Service: Mar 08, 2024 Billing Provider: CONI DRISCOLL MD Common Visit Codes: [id number] INP/OBS CARE(HIGH) TIGRE RAMOS RESIDENT Mar 08, 2024 19:41 CONI DRISCOLL MD Mar 09, 2024 05:22
[2024-03-08] MEDS ORDERED: IBUPROFEN 600 MG TAB PO PRN (20:00)
[2024-03-08] MEDS: IBUPROFEN 600 MG TAB PO PRN (21:59)
[2024-03-09] VITALS (8 sets, daily range): BP systolic 119–150; BP diastolic 59–73; PULSE 55–73; RESP 17–22; TEMP 97.7–99; O2SAT 95–99
[2024-03-09] MEDS: NIFEdipine ER 30 MG TAB PO SCH (10:00)
[2024-03-09] MEDS: LORazepam 0.5 MG TAB PO PRN (10:28)
[2024-03-09] MEDS: CITALOPRAM HYDROBR 20 MG TAB PO SCH (10:28)
--- NOTE | 2024-03-09 12:38 | DVHPNRES ---
Progress Note Date Seen: Mar 09, 2024 Resident Creating Document: SYD SMITH RESIDENT Medical Necessity Reason Pt with a Central, PICC or Fol: No Subjective Review of Systems Patient was seen and examined at bedside. She denied any significant chest pain, shortness breath, weakness, lightheadedness, dizziness, numbness, tingling. She is tolerating diet, ambulatory. Brain MRI can not be done due to patient's has been a huge unit. Patient is currently receiving antibiotics for UTI. Social service consult is pending for discharge disposition Objective vital signs Vital Sign Date Time Temp Pulse Resp B/P (MAP) Pulse Ox O2 Delivery O2 Flow Rate FiO2 03/09/24 10: 148/79 03/09/24 09:00 97.7 55 17 95 97.7 03/09/24 08:00 Room Air* 0 21 Total Intake and Output 03/08/24 03/08/24 03/09/24 15:00 23:00 07:00 Intake Total 50 ml 1000 ml 800 ml Balance 50 ml 1000 ml 800 ml medications Current Medications Medications Dose Ordered Sig/Dustin Route Start Time Stop Time Status Last Admin Dose Admin Aspirin 81 mg DAILY PO 03/07/24 10:00 03/09/24 10:28 81 MG Clopidogrel Bisulfate 75 mg DAILY PO 03/07/24 10:00 03/09/24 10:28 75 MG Atorvastatin Calcium 80 mg HS PO 03/06/24 22:00 03/08/24 21:58 80 MG Carvedilol 6.25 mg Q12HR PO 03/06/24 22:00 03/08/24 21:58 6.25 MG Zolpidem Tartrate 5 mg QHSP PRN PO 03/06/24 11:30 Lorazepam 0.5 mg Q6HP PRN PO 03/06/24 11:30 03/09/24 10:28 0.5 MG Docusate Sodium 100 mg DAILY PO 03/07/24 10:00 03/09/24 10:28 100 MG Ondansetron HCl 4 mg Q4HP PRN IV 03/06/24 11:30 Ceftriaxone Sodium 50 ml @ 100 mls/hr DAILY@09 IV 03/06/24 17:30 03/09/24 09:00 100 MLS/HR Lisinopril 10 mg DAILY PO 03/08/24 10:00 03/09/24 10:29 10 MG Hydralazine HCl 10 mg Q6HP PRN IV 03/08/24 11:15 03/08/24 13:38 10 MG Nifedipine 30 mg DAILY PO 03/09/24 10:00 Ibuprofen 600 mg Q6HP PRN PO 03/08/24 21:00 03/08/24 21:59 600 MG Citalopram Hydrobromide 10 mg DAILY PO 03/09/24 10:00 03/09/24 10:28 10 MG Examination General: Awake, alert, comfortable appearing, in no acute distress. Ulcerated skin cancer on her face HEENT: Head is normocephalic and atraumatic. Pupils are equal, round, and reactive to light. Extraocular muscles are intact. No nasal discharge. No facial trauma. Intraoral exam shows moist mucous membranes with no tonsillar enlargement or exudate. Neck: Supple with no cervical lymphadenopathy No meningismus. No goiter. Heart: Regular rate without murmur, rub, or gallop. Lungs: Equal breath sounds bilaterally with no wheezing, rales, or rhonchi. There is no chest wall tenderness or instability. Abdomen: No external sign of injury. Bowel sounds are present. Abdomen is soft, nontender. No rebound, no guarding, no rigidity. There are no palpable masses. There is no flank pain on exam. Extremities: Strong peripheral pulses. There is no clubbing, no cyanosis, and no edema. Skin: open wound lesion on her forehead between her eyes, necrotic lesion on the right chin Neurologic: Cranial nerves II-XII intact without motor, sensory, or cerebellar deficit, no asterixis. 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 Likely [id number] stenosis of the proximal right internal carotid artery. Consider repeat examination. Alternatively carotid doppler or MRA of the neck be performed for further evaluation. -->CT head: 1. Small nonspecific hypodense focus in the left caudate head may represent an age-indeterminate infarct. Clinical correlation and further evaluation with MRI brain with diffusion-weighted imaging is recommended. 2. Chronic cortical infarct in the superior left frontal lobe. --> possible TIA --> Physical therapy evaluation consult: pending Ulcerated skin Cancer --> Wound care consult --> Would need an oncologist/ Trigonometry Teacher evaluation UTI --> WBC: 11.2-->9.0 --> Ceftriaxone --> looking better, vitals improve. Hypertension --> Carvedilol --> Hydralazine 10mg SBP > 160 hypokalemia--> Improved K: 3.4--> 3.7 [place] of hearing ---> Communicate with patient by writing each question director of medical services consult for discharge disposition; still pending Patient would benefit from palliative care Case and plan discussed with Dr. Driscoll Plan discussed with: Patient, Other (RN) My Orders My Orders Orders - SYD SMITH RESIDENT Procedure Category Date Status Time Nifedipine Er PHA 03/09/24 In Process (Procardia Xl 10:00 Citalopram Tablet PHA 03/09/24 In Process (Celexa Tablet) 10:00 Addendum Addendum Addendum I was physically present for the [place] portions of the service provided to patient by THE RESIDENT. I have reviewed the documentation, discussed the case with resident and agree with the resident's documentation except as noted. Also the patient's clinical case was discussed with the patient's nurse. This medical document was created using an electronic medical record system with computerized dictation system. Although this document has been carefully reviewed, there might still be some phonetic and typographical errors. These areas are purely typographical due to imperfections of the software programs, and do not reflect any compromise in the patient's medical care. Late signature. Date of Service: Mar 09, 2024 Billing Provider: CONI DRISCOLL MD Common Visit Codes: [id number] INP/OBS CARE(HIGH) SYD SMITH RESIDENT Mar 09, 2024 12:38 CONI DRISCOLL MD Mar 10, 2024 19:04
[2024-03-10 01:00] VITALS: BP 134/66; PULSE 49; RESP 18; TEMP 97.6; O2SAT 92
[2024-03-10 05:00] VITALS: BP 157/69; PULSE 50; RESP 20; TEMP 98.5; O2SAT 98
[2024-03-10 07:13] LABS: Anion Gap 9 (5-15); Calcium 9.5 mg/dL (8.7-10.4); Carbon Dioxide 21 mmol/L (20-31); Potassium 3.9 mmol/L (3.5-5.1); Sodium 143 mmol/L (136-145)
[2024-03-10 07:19] LABS: BUN/Creatinine Ratio 25.3 (10.0-20.0); Blood Urea Nitrogen 19 mg/dL (9-23); Glucose 87 mg/dL (74-106)
[2024-03-10 07:37] LABS: Chloride 113 mmol/L (98-107)
[2024-03-10 08:00] VITALS: PULSE 80; RESP 17; O2SAT 98
[2024-03-10 09:00] VITALS: BP 145/91; PULSE 80; RESP 17; TEMP 97.5; O2SAT 98
[2024-03-10 13:00] VITALS: BP 154/66; PULSE 50; RESP 18; TEMP 97.8; O2SAT 91
[2024-03-10] MEDS ORDERED: AUG875T PO (17:08)
[2024-03-10] MEDS ORDERED: LISI2.5T47 PO (17:08)
[2024-03-10] MEDS ORDERED: CITA-73 PO (17:08)
[2024-03-10] MEDS ORDERED: SULF400T11 PO (17:08)
[2024-03-10] MEDS ORDERED: NIFE1TAB31 PO (17:08)
[2024-03-10] MEDS ORDERED: CARV6.2551 PO (17:08)
[2024-03-10] MEDS ORDERED: ATOR40TA52 PO (17:08)
[2024-03-10] MEDS ORDERED: DOCU-265 PO (17:08)
--- NOTE | 2024-03-10 17:15 | DVHDSRES ---
Discharge Summary Date of Admission Resident Creating Document: TIGRE RAMOS RESIDENT Mar 06, 2024 at 11:25 Date of Discharge: Mar 10, 2024 Admitting Diagnosis Right upper extremity weakness Labs/Diagnostic Data: Laboratory Results Test 03/10/24 05:52 03/07/24 05:44 03/06/24 11:20 03/06/24 10:52 Sodium Level 143 mmol/L (136-145) Potassium Level 3.9 mmol/L (3.5-5.1) Chloride Level 113 mmol/L (98-107) Carbon Dioxide Level 21 mmol/L (20-31) Anion Gap 9 (5-15) Blood Urea Nitrogen 19 mg/dL (9-23) Creatinine 0.75 mg/dL (0.550-1.02) Glomerular Filtration Rate Calc 88 mL/min (>90) BUN/Creatinine Ratio 25.3 (10.0-20.0) Serum Glucose 87 mg/dL (74-106) Calcium Level 9.5 mg/dL (8.7-10.4) White Blood Count 9.0 10^3/uL (4.4-10.8) Red Blood Count 4.73 10^6/uL (4.0-5.20) Hemoglobin 12.9 g/dL (12.2-16.2) Hematocrit 38.6 % (36.0-46.0) Mean Corpuscular Volume 81.7 fL (80.0-100.0) Mean Corpuscular Hemoglobin 27.3 pg (28.0-32.0) Mean Corpuscular Hemoglobin Concent 33.4 g/dL (32.0-36.0) Red Cell Distribution Width 15.8 % (11.8-14.3) Platelet Count 291 10^3/uL (140-450) Mean Platelet Volume 8.3 fL (6.9-10.8) Neutrophils (%) (Auto) 65.7 % (37.0-80.0) Lymphocytes (%) (Auto) 23.2 % (10.0-50.0) Monocytes (%) (Auto) 9.6 % (0.0-12.0) Eosinophils (%) (Auto) 0.9 % (0.0-7.0) Basophils (%) (Auto) 0.6 % (0.0-2.0) Neutrophils # (Auto) 5.9 10 ^3/uL (1.6-8.6) Lymphocytes # (Auto) 2.1 10 ^3/uL (0.4-5.4) Monocytes # (Auto) 0.9 10 ^3/uL (0-1.3) Eosinophils # (Auto) 0.1 10 ^3/uL (0-0.8) Basophils # (Auto) 0.1 10 ^3/uL (0-0.2) Nucleated Red Blood Cells 0.0 % Magnesium Level 2.2 mg/dL (1.6-2.6) Triglycerides Level 112 mg/dL (< 150) Cholesterol Level 153 mg/dL (< 200) LDL Cholesterol 79 mg/dL (< 100) HDL Cholesterol 48 mg/dL (40-59) Urine Color Colorless (Yellow) Urine Clarity Turbid (Clear) Urine pH 6.5 (5.0-9.0) Urine Specific [place] 1.004 (1.001-1.035) Urine Protein Negative (Negative) Urine Ketones Negative (Negative) Urine Blood 2+ /uL (Negative) Urine Nitrite 2+ (Negative) Urine Bilirubin Negative (Negative) Urine Urobilinogen Normal mg/dL (Negative) Urine Leukocyte Esterase 1+ /uL (Negative) Urine RBC 2 /hpf (0 - 4) Urine WBC 4 /hpf (0 - 5) Urine Squamous Epithelial Cells Few /hpf (<5) Urine Bacteria None seen /hpf (None Seen) Urine Glucose Normal mg/dL (Normal) Troponin I High Sensitivity 9 ng/L (</=34) Other Laboratory Tests 03/10/24 05:52 03/07/24 05:44 Brief Hx & Hospital Course: Ms Sanz is a 68-year-old patient with a past medical history of skin cancer, multiple strokes came into the ED on with the complaint of right sided weakness that was initially intermittent but became progressive and constant for 2 days prior to presentation to the ED. In the lab test was unremarakble but her urinalysis was positive for UTI. 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 Likely [id number] stenosis of the proximal right internal carotid artery. and CT head showed Small nonspecific hypodense focus in the left caudate head may represent an age-indeterminate infarct and a chronic cortical infarct in the superior left frontal lobe. She received treatment for the UTI and physical therapy for the weakness. With regards to the skin cancer, I recommended that the patient follows up with a PCP for a referral to an oncologist or legal researcher. Patient does not have a PCP. Therefore, I advised her to come to discharge clinic this week. We have some people who can help her set up with some insurance that will enable her to at least get a PCP. Examination day of discharge General: Awake, alert, comfortable appearing, in no acute distress. Ulcerated skin cancer on her face HEENT: Head is normocephalic and atraumatic. Pupils are equal, round, and reactive to light. Extraocular muscles are intact. No nasal discharge. No facial trauma. Intraoral exam shows moist mucous membranes with no tonsillar enlargement or exudate. Neck: Supple with no cervical lymphadenopathy No meningismus. No goiter. Heart: Regular rate without murmur, rub, or gallop. Lungs: Equal breath sounds bilaterally with no wheezing, rales, or rhonchi. There is no chest wall tenderness or instability. Abdomen: No external sign of injury. Bowel sounds are present. Abdomen is soft, nontender. No rebound, no guarding, no rigidity. There are no palpable masses. There is no flank pain on exam. Extremities: Strong peripheral pulses. There is no clubbing, no cyanosis, and no edema. Skin: open wound lesion on her forehead between her eyes, necrotic lesion on the right chin Neurologic: Cranial nerves II-XII intact without motor, sensory, or cerebellar deficit, no asterixis. From a medical standpoint patient is clinically stable to go home with antibiotics for the wound antihypertensive medications as well cholesterol medication. The plan going forward is for the patient to follow up with us at the discharge clinic within the week. There we will try to set patient up with primary care physician and also probably a referral to see either a legal researcher or an oncologist regarding her skin cancer. Discharge planning and discussion took more than 35 minutes Case discussed with Dr. Driscoll Consults/Reason for consult Wound care for ulcerated skin cancer on the face Operations or Procedures PATIENT: LIZZETTE SANZ ACCT: [id number] UNIT: [id number] : 1955 LOC: ER ROOM / BED: / AGE / SEX: 68 / F ADM STATUS: REG ER SERVICE 1018 ORDERING PHYSICIAN: CHRISSY WINKLER MD PROCEDURE(s): HWOCT - HEAD WITHOUT CONTRAST REASON: weakness ORDER NUMBER(s): [id number], ACCESSION NUMBER(s): [id number] EXAM: CT HEAD WITHOUT CONTRAST HISTORY: weakness COMPARISON: None TECHNIQUE: Axial images of the head were obtained and reformatted in coronal and sagittal planes. All CT scans at this medical facility are performed using dose modulation techniques as appropriate to a performed exam including the following: Automated exposure control was utilized; adjustment of the MA and/or KV according to patient size; and use of iterative reconstruction technique. CT Dose: CTDI volume is 56.26 mGy. Dose-length product is 996.21 mGy*cm FINDINGS: There is a small hypodense focus in the left caudate head region ( axial image 31 ) which may represent an age indeterminate infarct. There is a chronic cortical infarct in the superior left frontal lobe. There is no evidence of acute intracranial hemorrhage, mass, mass effect midline shift. There is no hydrocephalus or extra-axial fluid collection. The visualized paranasal sinuses and mastoid air cells are clear. The calvarium is intact. IMPRESSION: 1. Small nonspecific hypodense focus in the left caudate head may represent an age-indeterminate infarct. Clinical correlation and further evaluation with MRI brain with diffusion-weighted imaging is recommended. 2. Chronic cortical infarct in the superior left frontal lobe. HS:Y ATED BY: ABHILASH MOLINA MD DICTATED DATE/TIME: 03/06/24 1057 PATIENT: LIZZETTE SANZ ACCT: [id number] UNIT: [id number] : 1955 LOC: OVERFLOW ROOM / BED: 1021-ER / A AGE / SEX: 68 / F ADM STATUS: ADM IN SERVICE 1343 ORDERING PHYSICIAN: ERIC WAGGONER MD PROCEDURE(s): [place] - ANGIO HEAD/Neck REASON: CVA EVALUATION ORDER NUMBER(s): [id number], ACCESSION NUMBER(s): [id number] INDICATION: CVA EVALUATION COMPARISON: None TECHNIQUE: CTA head with intravenous contrast. CTA neck with intravenous contrast. 3D image postprocessing was performed on a dedicated workstation and images were used for interpretation and reporting. Radiation Dose Information: CT Dose: CTDI volume is 22.55 mGy. Dose-length product is 736.89 mGy*cm CONTRAST: Type of contrast: Omni 350 Contrast injected: 100 ml FINDINGS: CTA head: There is normal enhancement of the visualized distal right internal carotid, anterior and middle cerebral arteries. Left petrous and cavernous carotid arteries are occluded. Left supraclinoid internal carotid artery is patent. Left A1 segment is atretic. Left middle cerebral artery is patent. There is a normal anterior communicating artery complex. The vertebral, basilar, cerebellar and posterior cerebral arteries are within normal limits. The early parenchymal enhancement is grossly unremarkable. The visualized intracranial venous structures are grossly unremarkable. CTA neck: Limited by motion at the level of the carotid bifurcation. The visualized thoracic aortic arch and proximal great vessels are unremarkable. 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 Left common and external carotid arteries appear patent. There appears to be a cwar-gu-gdaaeqex stenosis of the proximal right internal carotid artery. Right common and external carotid arteries appear patent. The cervical segments of the right and left vertebral arteries are within normal limits. The limited visualized lung apices are clear. Left thyroid cyst or nodule. Degenerative changes in the cervical spine. IMPRESSION: 1. Limited by motion at the level of the carotid bifurcation. 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 Likely qqib-om-peiprvbb stenosis of the proximal right internal carotid artery. Consider repeat examination. Alternatively carotid doppler or MRA of the neck be performed for further evaluation. 2. Occluded left petrous and cavernous carotid artery with reconstitution at the level of the left supraclinoid internal carotid artery. Otherwise intracranial arteries are patent. All CT scans at this medical facility are performed using dose modulation techniques as appropriate to a performed exam including the following: Automated exposure control was utilized; adjustment of the MA and/or KV according to patient size; and use of iterative reconstruction technique. HS:Y ATED BY: WAGNER ZURITA MD DICTATED DATE/TIME: 03/06/24 1546 PATIENT: LIZZETTE SANZ ACCT: [id number] UNIT: [id number] : 1955 LOC: OVERFLOW ROOM / BED: [facility]-ER / A AGE / SEX: 68 / F ADM STATUS: ADM IN SERVICE 1343 ORDERING PHYSICIAN: ERIC WAGGONER MD PROCEDURE(s): [place] - ANGIO HEAD/Neck REASON: CVA EVALUATION ORDER NUMBER(s): [id number], ACCESSION NUMBER(s): [id number] INDICATION: CVA EVALUATION COMPARISON: None TECHNIQUE: CTA head with intravenous contrast. CTA neck with intravenous contrast. 3D image postprocessing was performed on a dedicated workstation and images were used for interpretation and reporting. Radiation Dose Information: CT Dose: CTDI volume is 22.55 mGy. Dose-length product is 736.89 mGy*cm CONTRAST: Type of contrast: Omni 350 Contrast injected: 100 ml FINDINGS: CTA head: There is normal enhancement of the visualized distal right internal carotid, anterior and middle cerebral arteries. Left petrous and cavernous carotid arteries are occluded. Left supraclinoid internal carotid artery is patent. Left A1 segment is atretic. Left middle cerebral artery is patent. There is a normal anterior communicating artery complex. The vertebral, basilar, cerebellar and posterior cerebral arteries are within normal limits. The early parenchymal enhancement is grossly unremarkable. The visualized intracranial venous structures are grossly unremarkable. CTA neck: Limited by motion at the level of the carotid bifurcation. The visualized thoracic aortic arch and proximal great vessels are unremarkable. 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 Left common and external carotid arteries appear patent. There appears to be a rwbq-fm-tabxzsmp stenosis of the proximal right internal carotid artery. Right common and external carotid arteries appear patent. The cervical segments of the right and left vertebral arteries are within normal limits. The limited visualized lung apices are clear. Left thyroid cyst or nodule. Degenerative changes in the cervical spine. IMPRESSION: 1. Limited by motion at the level of the carotid bifurcation. 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 Likely bfnm-us-chxopkxw stenosis of the proximal right internal carotid artery. Consider repeat examination. Alternatively carotid doppler or MRA of the neck be performed for further evaluation. 2. Occluded left petrous and cavernous carotid artery with reconstitution at the level of the left supraclinoid internal carotid artery. Otherwise intracranial arteries are patent. All CT scans at this medical facility are performed using dose modulation techniques as appropriate to a performed exam including the following: Automated exposure control was utilized; adjustment of the MA and/or KV according to patient size; and use of iterative reconstruction technique. HS:Y ATED BY: WAGNER ZURITA MD DICTATED DATE/TIME: 03/06/24 1541 Condition at Discharge: Stable Final Diagnosis/Problems List Right upper extremity weakness UTI Ulcerated skin Cancer Hypertension hypokalemia [place] of hearing Discharge Disposition: Home Discharge Instruct/Medications Diet: Regular Activity: No Restrictions, As Tolerated Follow Up/Referral: 7 days Discharge Statement: "Patient was advised to return to the ER or call 911 if any headaches, dizziness, shortness of breath, chest pain, abdominal pain, bleeding, fevers, or worsening of medical condition. Patient was counseled about treatment plan, medications, possible side effects, patientverbalized understanding. All questions were answered to the best of my ability. This discharge took greater then 30 minutes in planning, reviewing documentation, counseling the patient, and discussing with other team members." ASSESSMENT ASSESSMENT Assessment Right upper extremity weakness Addendum Addendum Addendum I was physically present for the [place] portions of the service provided to patient by THE RESIDENT. I have reviewed the documentation, discussed the case with resident and agree with the resident's documentation except as noted. Also the patient's clinical case was discussed with the patient's nurse. This medical document was created using an electronic medical record system with computerized dictation system. Although this document has been carefully reviewed, there might still be some phonetic and typographical errors. These areas are purely typographical due to imperfections of the software programs, and do not reflect any compromise in the patient's medical care. Late signature. Date of Service: Mar 10, 2024 Billing Provider: CONI DRISCOLL MD Common Visit Codes: 99843-VQU/OBS DISCH DAY >30min TIGRE RAMOS Mar 10, 2024 17:15 CONI DRISCOLL MD Mar 11, 2024 05:07
== END 2024-03-10 15:45 | disposition home or self-care (01) | DRG 463 ==
LOC: ER 09:58 → EDBD 09:58 → OVERFLOW 11:25 → CENTRAL 03-07 01:38
PROVIDERS: ADMIT Internal Medicine; ATTEND Internal Medicine
DX: N30.00 Acute cystitis without hematuria (principal); I69.351 Hemiplegia and hemiparesis following cerebral infarction affecting right dominant side; E87.6 Hypokalemia; I10 Essential (primary) hypertension; I65.22 Occlusion and stenosis of left carotid artery; Z85.828 Personal history of other malignant neoplasm of skin
CPT/HCPCS: 36415; 70450; 70496; 80048; 80061; 81001; 83735; 84484; 85025; 87086; 93886; 96365; 97163; 99291; G0378

== ENCOUNTER → 2024-03-26 | Outpatient (CLI) | payer OTHER ==
[~2024-03-26] MED LIST: ATOR40TA52 PO; AUG875T PO; CARV6.2551 PO; CITA-73 PO; DOCU-265 PO; LISI2.5T47 PO; NIFE1TAB31 PO; SULF400T11 PO
[2024-03-26 14:01] LABS: Basophils # (auto) 0.1 10 ^3/uL (0-0.2); Eosinophils # (auto) 0.2 10 ^3/uL (0-0.8); Hemoglobin 11.4 g/dL (12.2-16.2)
[2024-03-26 14:03] LABS: Basophils % (auto) 0.5 % (0.0-2.0); Eosinophils % (auto) 1.6 % (0.0-7.0); Hematocrit 35.4 % (36.0-46.0); Lymphocytes # (auto) 3.1 10 ^3/uL (0.4-5.4); Lymphocytes % (auto) 29.6 % (10.0-50.0); Mean Corpuscular Hemoglobin 26.5 pg (28.0-32.0); Mean Corpuscular Hgb Conc. 32.3 g/dL (32.0-36.0); Monocytes # (auto) 1.2 10 ^3/uL (0-1.3); Monocytes % (auto) 11.3 % (0.0-12.0); Neutrophils # (auto) 5.9 10 ^3/uL (1.6-8.6); Platelet Count (auto) 320 10^3/uL (140-450); Red Blood Cells 4.32 10^6/uL (4.0-5.20); Red Cell Distribution Width 15.8 % (11.8-14.3); White Blood Cell 10.4 10^3/uL (4.4-10.8)
[2024-03-26 14:15] LABS: INR 0.98 (0.9-1.15); Prothrombin Time 10.4 sec (9.3-11.8)
[2024-03-26 14:37] LABS: Alanine Aminotransferase 13 U/L (7-40); Alkaline Phosphatase 83 U/L (46-116); Anion Gap 6 (5-15); BUN/Creatinine Ratio 21.7 (10.0-20.0); Bilirubin, Total 0.4 mg/dL (0.2-1.0); Blood Urea Nitrogen 20 mg/dL (9-23); Calcium 9.6 mg/dL (8.7-10.4); Carbon Dioxide 23 mmol/L (20-31); Glucose 94 mg/dL (74-106); Potassium 4.2 mmol/L (3.5-5.1); Sodium 143 mmol/L (136-145)
[2024-03-26 14:38] LABS: Total Protein 6.8 g/dL (5.7-8.2)
[2024-03-26 14:44] LABS: Aspartate Aminotransferase 12 U/L (13-40); Chloride 114 mmol/L (98-107)
== END | disposition home or self-care (01) ==
LOC: LAB 13:38
PROVIDERS: ATTEND Internal Medicine
DX: C44.90 Unspecified malignant neoplasm of skin, unspecified (principal)
CPT/HCPCS: 36415; 80053; 85025; 85610

== ENCOUNTER 2024-07-02 11:50 | Emergency (ER) | payer MEDICARE, OTHER ==
[~2024-07-02] VITALS: Ht 170.2 cm; Wt 71.6 kg
--- NOTE | 2024-07-02 12:05 | ED.PDOC ---
HPI Comments 68 y/o F, with PMHX of skin cancer presents to the ED for CC of hypotension. Patient's son states, she was at an outpatient appointment when she was relayed to the ED for a further evaluation on her hypotension. Patient's son reports, patients blood pressure at outpatient appointment read in the 90s systolic; patient's blood pressure in ED triage read at 119/84. Patient denies shortness of breath, chest pain, fatigue, weakness, dizziness, or N/V/D. No other symptoms or modifying factors at this time. Time Seen by MD: 12:20 Primary Care Provider: NONE Allergies: Coded Allergies: NO KNOWN ALLERGIES (Unverified , 03/06/24) Home Meds Active Scripts Amoxicillin Trihydrate (Amoxicillin) 500 Mg Cap, 1 CAP PO TID for 7 Days, #21 CAP Prov:JENNYFER BELLE MD 07/02/24 Docusate Sodium (Docusate Sodium) 100 Mg Cap, 100 MG PO DAILY for 30 Days, #30 CAP Prov:TIGRE RAMOS 03/10/24 Lisinopril (Lisinopril) 2.5 Mg Tab, 10 MG PO DAILY for 30 Days, #30 TAB Prov:TIGRE RAMOS [facility] 03/10/24 Citalopram Hydrobromide (Citalopram Hydrobromide) 40 Mg Tab, 10 MG PO DAILY for 30 Days, #8 TAB Prov:TIGRE RAMOS [facility] 03/10/24 Nifedipine (Nifedipine Er) 30 Mg Tab, 30 MG PO DAILY for 30 Days, #30 TAB Prov:TIGRE RAMOS [facility] 03/10/24 Atorvastatin Calcium (ATORVASTATIN CALCIUM) 40 Mg Tab, 40 MG PO DAILY for 30 Days, #30 TAB Prov:TIGRE RAMOS [facility] 03/10/24 Carvedilol (Carvedilol) 6.25 Mg Tab, 1 TAB PO BID for 30 Days, #60 TAB 1 Refill Prov:TIGRE RAMOS 03/10/24 Sulfamethoxazole-Trimethoprim (Bactrim) 1 Tab Tab, 1 TAB PO BID for 5 Days, #10 TAB Prov:TIGRE RAMOS 03/10/24 Amoxicillin & Pot Clavulanate (AUGMENTIN TABLET) 875 Mg Tb, 875 MG PO BID for 5 Days, #10 TAB Prov:TIGRE RAMOS 03/10/24 Past Medical History PAST MEDICAL HISTORY: Cancer Surgical History: Denies all surgeries 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 Hx Family History Family History: Reviewed,noncontributory to illness Social History Smoker: Non-Smoker Alcohol: Denies ETOH Use Drugs: Denies Drug Use Lives In: Home Physical Exam General Appearance: Moderate Distress HEENT: Normal ENT Inspection, Pharynx Normal, TMs Normal Neck: Full Range of Motion, Non-Tender, Normal, Normal Inspection Respiratory: Chest Non-Tender, Lungs Clear, No Accessory Muscle Use, No Respiratory Distress, Normal Breath Sounds Cardiovascular: No Edema, No JVD, No Murmur, No Gallop, Normal Peripheral Pulses, Regular Rate/Rhythm Breast Exam: Deferred Gastrointestinal: No Organomegaly, Non Tender, No Pulsatile Mass, Normal Bowel Sounds, Soft Genitalia: Deferred Pelvic: Deferred Rectal: Deferred Extremities: No calf tenderness, Normal capillary refill, Normal inspection, Normal range of motion, Non-tender, No pedal edema Musculoskeletal : Apperance: Normal Neurologic: Alert, voice instructor II-XII nml as Tested, No Motor Deficits, Normal Affect, Normal Mood, No Sensory Deficits Cerebellar Function: NOT DONE Reflexes: NOT DONE Skin: Dry, Normal Color, Warm, Wounds (Biopsy area healing) Peripheral Pulses: 3+ Radial (R), 3+ Radial (L) Lymphatic: No Adenopathy Was a procedure done? Was a procedure done?: No CP Differential Dx Differential Diagnosis: A-fib, A-Flutter, Angina, Anxiety / Panic Attack, Atrial Dysrhythmia, Electrolyte Disorder Differential Diagnosis: Other (hypotension) X-Ray, Labs, Meds, VS Vital Signs Date Time Temp Pulse Resp B/P (MAP) Pulse Ox O2 Delivery O2 Flow Rate FiO2 07/02/24 13:18 61 17 98 Room Air 07/02/24 13:18 97.6 61 17 132/80 (97) 98 97.6 07/02/24 12:07 98.0 63 19 119/84 (96) 97 98.0 Lab Test 07/02/24 13:28 Range/Units Urine Color Colorless Yellow Urine Clarity Clear Clear Urine pH 6.0 5.0-9.0 Urine Specific [place] 1.005 1.001-1.035 Urine Protein Negative Negative Urine Ketones Negative Negative Urine Blood 2+ H Negative /uL Urine Nitrite Negative Negative Urine Bilirubin Negative Negative Urine Urobilinogen Normal Negative mg/dL Urine Leukocyte Esterase Negative Negative /uL Urine RBC 10 0 - 4 /hpf Urine Microscopic WBC < 1 0-5 /HPF Urine Squamous Epithelial Cells Few <5 /hpf Urine Bacteria None seen None Seen /hpf Urine Glucose Normal Normal mg/dL Current Medications Medications (Trade) Dose Ordered Sig/Dustin Route Start Time Stop Time Status Last Admin Sodium Chloride 1,000 ml @ 1,000 mls/hr Q1H ONCE IV 07/02/24 12:30 07/02/24 13:29 DC 07/02/24 13:17 [place] [id number] Ph: [phone] DIAGNOSTIC IMAGING Diagnostic Imaging Report : [id number] Signed PATIENT: LIZZETTE ATWOOD ACCT: [id number] UNIT: [id number] : 1955 LOC: ER ROOM / BED: / AGE / SEX: 68 / F ADM STATUS: REG ER SERVICE 1219 ORDERING PHYSICIAN: JENNYFER BELLE MD PROCEDURE(s): CXRP - CHEST PORTABLE REASON: cough ORDER NUMBER(s): [id number], ACCESSION NUMBER(s): [id number] CHEST RADIOGRAPH Indication: cough Technique: Single frontal view of the chest was obtained COMPARISON: None FINDINGS: Lines and Tubes: None Lungs: Congestion. Pleura: No effusion. No pneumothorax. Cardiomediastinal contours: Unremarkable Bones: Unremarkable IMPRESSION: Mild congestion ATED BY: JOSE BAUTISTA MD DICTATED DATE/TIME: 07/02/24 123 SIGNED BY: JOSE BAUTISTA MD SIGNED DATE/TIME: 07/02/24 123 CC: Patient alert. Has a biopsy for skin lesion. Vitals stable. Answering questions. Was sent to the ER because of low blood pressure. Establish intravenous access. Was given fluids. She continues to smoke cigarettes. Counseled patient on effects of smoking cigarettes for 15 minutes. Chest x-ray reviewed does not show any acute changes mild inflammation. Possible bronchitis. Was given prescription of amoxicillin antibiotic. Reviewed her history. Explained to the patient. Was told to follow up with her primary care physician. Was told to come back if there is any problem. Time of 1ST Reevaluation: 12:50 Reevaluation 1ST: Unchanged Patient Education/Counseling: Diagnosis, Treatment Family Education/Counseling: No Family Present Departure 1 Departure Time of Disposition: 13:34 Impression: Primary Impression: Dehydration Additional Impression: COPD (chronic obstructive pulmonary disease) Qualified Codes: J44.9 - Chronic obstructive pulmonary disease, unspecified Disposition: HOME / SELF CARE / HOMELESS Condition: Good e-Prescriptions Amoxicillin Trihydrate (Amoxicillin) 500 Mg Cap 1 CAP PO TID for 7 Days, #21 CAP Prov: JENNYFER BELLE MD 07/02/24 Discharged With: Self Critical Care Note Critical Care Time?: No Stability Stability form required: No Heart Score Heart Score: Heart Score Response (Comments) Value History N/A 0 EKG N/A 0 Age N/A 0 Risk Factors N/A 0 Troponin N/A 0 Total 0 I personally scribed for JENNYFER BELLE MD ([email or web address]) on 07/02/24 at 12:05. E lectronically submitted by Melania Rosado ([email or web address]). I personally scribed for JENNYFER BELLE MD ([email or web address]) on 07/02/24 at 12:15. Electronically submitted by Melania Rosado ([email or web address]). I personally scribed for JENNYFER BELLE MD ([email or web address]) on 07/02/24 at 12:22. Electronically submitted by Melania Rosado ([email or web address]). I personally scribed for JENNYFER BELLE MD ([email or web address]) on 07/02/24 at 13:56. Electronically submitted by Melania Rosado ([email or web address]). JENNYFER BELLE MD Jul 02, 2024 12:05
--- NOTE | 2024-07-02 12:41 | DVH ---
CHEST RADIOGRAPH Indication: cough Technique: Single frontal view of the chest was obtained COMPARISON: None FINDINGS: Lines and Tubes: None Lungs: Congestion. Pleura: No effusion. No pneumothorax. Cardiomediastinal contours: Unremarkable Bones: Unremarkable IMPRESSION: Mild congestion
[2024-07-02] MEDS: SODIUM CHLORIDE 0.9% 1,000 ML IV ONE (13:17)
[2024-07-02 13:18] VITALS: BP 132/80; PULSE 61; RESP 17; TEMP 97.6; O2SAT 98
[2024-07-02 13:29] LABS: Urine Bacteria None Seen /hpf (None Seen)
[2024-07-02] MEDS ORDERED: AMOX500C2 PO (13:35)
[2024-07-02 13:39] LABS: Urine Blood 2+ /uL (Negative); Urine Clarity Clear (Clear); Urine Color Colorless (Yellow); Urine Protein, UAD Negative (Negative); Urine Specific Gravity 1.005 (1.001-1.035); Urine Squamous Epithelial Cell FEW /hpf (<5); Urine Urobilinogen Normal (Negative); Urine WBC < 1 /HPF (0-5)
== END 2024-07-02 14:38 | disposition home or self-care (01) ==
LOC: ER 12:05
DX: E86.0 Dehydration (principal); J44.9 Chronic obstructive pulmonary disease, unspecified; F17.210 Nicotine dependence, cigarettes, uncomplicated; Z79.899 Other long term (current) drug therapy; Z85.828 Personal history of other malignant neoplasm of skin
CPT/HCPCS: 71045; 81001; 96360; 99284; J7030

== ENCOUNTER → 2024-11-07 | Outpatient (CLI) | payer MEDICARE, OTHER ==
[~2024-11-07] MED LIST changes: +AMOX500C2 PO
[2024-11-07 10:37] LABS: Nucleated Red Blood Cells % 0.0 %
[2024-11-07 10:40] LABS: Hematocrit 36.3 % (36.0-46.0); Hemoglobin 11.9 g/dL (12.2-16.2); Mean Corpuscular Hemoglobin 24.8 pg (28.0-32.0); Mean Corpuscular Volume 75.8 fL (80.0-100.0)
[2024-11-07 11:14] LABS: Alanine Aminotransferase 12 U/L (7-40); Alkaline Phosphatase 93 U/L (46-116); Anion Gap 8 (5-15); Carbon Dioxide 24 mmol/L (20-31); Potassium 4.3 mmol/L (3.5-5.1); Sodium 141 mmol/L (136-145)
[2024-11-07 11:15] LABS: Calcium 10.4 mg/dL (8.7-10.4); Chloride 109 mmol/L (98-107)
[2024-11-07 11:17] LABS: BUN/Creatinine Ratio 18.8 (10.0-20.0); Blood Urea Nitrogen 16 mg/dL (9-23); Glucose 111 mg/dL (74-106)
[2024-11-07 11:18] LABS: Albumin 4.5 g/dL (3.2-4.8); Total Protein 7.2 g/dL (5.7-8.2)
[2024-11-07 11:19] LABS: Bilirubin, Total 0.4 mg/dL (0.2-1.0)
== END | disposition home or self-care (01) ==
LOC: LAB 10:05
PROVIDERS: ATTEND Internal Medicine
DX: I10 Essential (primary) hypertension (principal); J44.9 Chronic obstructive pulmonary disease, unspecified
CPT/HCPCS: 36415; 80053; 85025; 85652; 87205

== ENCOUNTER → 2025-01-30 | Outpatient (CLI) | payer MEDICARE, OTHER | END | disposition home or self-care (01) | LOC: LAB 07:39 | PROVIDERS: ATTEND Internal Medicine | DX: C44.310 Basal cell carcinoma of skin of unspecified parts of face (principal); L98.492 Non-pressure chronic ulcer of skin of other sites with fat layer exposed; I69.351 Hemiplegia and hemiparesis following cerebral infarction affecting right dominant side | CPT/HCPCS: 87081; 87205 ==